=== PATIENT | male | born 1985 | race Two or more races ===

== ENCOUNTER 2018-06-04 23:29 | Emergency (ER) | payer OTHER ==
[~2018-06-04] VITALS: Ht 177.8 cm; Wt 77.1 kg
[2018-06-04 23:58] VITALS: BP 116/54
[2018-06-05] MEDS ORDERED: DEXAMETHASONE SOD PHOS 10MG/1ML VIAL INJ IM ONE (02:00)
[2018-06-05] MEDS ORDERED: ALBUTEROL SULF 2.5 MG/0.5ML(0.5%) NEB SOLN NEB ONE (02:00)
[2018-06-05] MEDS ORDERED: IPRATROPIUM BROM 0.5 MG/2.5ML INH SOL NEB ONE (02:00)
== END 2018-06-05 03:49 | disposition home or self-care (01) ==
LOC: ER 23:29
DX: J45.909 Unspecified asthma, uncomplicated (principal)
CPT/HCPCS: 71046; 94640; 96372; 99283; J1100; J7611; J7644